=== PATIENT | male | born 1960 | race Caucasian/White ===

== ENCOUNTER 2016-11-09 02:21 | Inpatient (IN) | payer OTHER ==
[~2016-11-09] VITALS: Ht 183 cm; Wt 120.0 kg
--- NOTE | ~2016-11-09 | O ---
[place], [place] OPERATIVE NOTE NAME: [facility]UD[facility] [id number] UNIT #: [id number] ROOM: DOCTOR: TOMASA TELLEZ MD BIRTHDATE: [birth year] DOS: 11/09/2016 PREOPERATIVE DIAGNOSIS: Symptomatic gallstones. POSTOPERATIVE DIAGNOSIS: Chronic calculous cholecystitis. PROCEDURE: Laparoscopic cholecystectomy. SURGEON: Tomasa Tellez MD SEEING EYE DOG TRAINER: MS3. ANESTHESIA: General anesthesia with endotracheal intubation. INDICATIONS: This is a 56-year-old gentleman who has a history of symptomatic gallstones who comes in today for the above-mentioned procedure. The procedure and its complications were explained to the patient in detail preoperatively. Complications that were discussed included, but were not limited to bleeding, infection, hematoma/seroma/abscess formation, prolonged postoperative pain, inadvertent injury to common bile duct, biloma formation and incisional hernia formation. He agreed to proceed. DESCRIPTION OF PROCEDURE: After identifying the patient, the patient was brought to the operating suite and laid in the supine position. After induction of general anesthesia, the parts were then painted and draped in the usual sterile fashion and a timeout procedure was called. An umbilical incision of approximately 10 mm was made. The skin and the subcutaneous tissue was incised. The fascial edges were incised as well and the peritoneum was opened, 2 stay sutures with 0 Vicryl were taken and a 10 mm Myrna port was introduced. Pneumoperitoneum was created. Under direct vision, an epigastric incision of 10 mm and two 5 mm incisions were made in the right upper quadrant and appropriate size ports were introduced. The gallbladder was retracted superiorly and laterally. The cystic duct and the cystic artery were meticulously dissected until the critical view of safety was obtained and the triangle of Calot was identified. Thereafter, each of these structures were clipped 3 times and cut between the first and the second clip. The gallbladder was then removed from the bed of the gallbladder with the help of electrocautery. It was placed in an EndoCatch bag and removed from the peritoneal cavity and sent for histopathological diagnosis. Hemostasis was achieved in the liver bed. Thereafter, the right upper quadrant and epigastric ports were removed and there was no bleeding seen. The umbilical port was also removed. The edges of the skin were then approximated after injecting then with local anesthesia. The patient extubated and taken to the recovery in stable . Dr. Tomasa Tellez, the attending surgeon was present throughout the operating case. [place], [place] OPERATIVE NOTE NAME: BLANK ASTUDILLO UNIT #: [id number] ROOM: DOCTOR: TOMASA TELLEZ MD BIRTHDATE: [birth year] Tomasa Tellez MD CM:OPRECORD:OPERATIVE NOTE [id number] TOMASA TELLEZ MD 11/09/16 1259 interface
[~2016-11-09 02:21] MED LIST: LABETALOL HCL300 MG PO; LISINOPRIL-HYDR1 TA1 PO; NAPROXEN D/R500 MG PO
[2016-11-09] MEDS ORDERED: HYDROCODONE BIT1 T11 PO (13:52)
[2016-11-09] MEDS ORDERED: LISINOPRIL-HYDR1 TA1 PO (18:13)
[2016-11-10] MEDS ORDERED: NORCO 5-325 TA1 EACH PO (08:36)
== END 2016-11-10 08:54 | disposition home or self-care (01) | DRG 419 ==
LOC: SDC 02:21 → 5E 15:40
PROC: 0FT44ZZ Resection of Gallbladder, Percutaneous Endoscopic Approach (ICD-10-PCS; principal; 2016-11-09)
DX: K80.10 Calculus of gallbladder with chronic cholecystitis without obstruction (principal)

== ENCOUNTER → 2019-06-13 | Outpatient (CLI) | payer OTHER ==
[~2019-06-13] MED LIST changes: +HYDROCODONE BIT1 T11 PO; +NORCO 5-325 TA1 EACH PO
== END | disposition home or self-care (01) ==
LOC: US 10:06
DX: I65.23 Occlusion and stenosis of bilateral carotid arteries (principal)

== ENCOUNTER → 2019-12-01 | Outpatient (CLI) | payer OTHER | END | disposition home or self-care (01) | LOC: LAB 08:52 → MRI 09:00 | PROVIDERS: Radiology Diagnostic Radiology | DX: R42 Dizziness and giddiness (principal) ==

== ENCOUNTER → 2023-06-18 | Outpatient (CLI) | payer MEDICARE | END | disposition home or self-care (01) | LOC: US 14:00 | PROVIDERS: ATTEND Internal Medicine | DX: R42 Dizziness and giddiness (principal) ==